=== PATIENT | female | born 2000 | race Caucasian/White ===

== ENCOUNTER → 2019-11-26 08:19 | Outpatient (CLI) | payer SELFPAY ==
--- NOTE | 2019-11-26 | DI.US.S_ITS ---
PROCEDURE: US ABDOMEN COMPLETE INDICATIONS: ABD PAIN TECHNIQUE: Real-time scanning was performed of the abdominal and retroperitoneal organs, with image documentation. COMPARISON: None. FINDINGS: Liver: Liver is normal in size and homogeneous in echotexture. Gallbladder: The gallbladder appears normal Biliary ducts: Intrahepatic bile ducts are non-dilated. Extrahepatic bile duct caliber measures 5.0 mm. Normal is 6-7 mm or less in diameter, or 10 mm or less post-cholecystectomy. Pancreas: Visualized portions of the pancreas are sonographically normal. Spleen: Spleen is normal in size and homogeneous in echotexture. Kidneys: Kidneys are normal in size and echotexture. Right kidney measures 10.3 cm long; left kidney measures 10.7 cm long. No hydronephrosis or nephrolithiasis. No solid masses. Aorta: Visualized aorta is normal in caliber at less than 3 cm. Iliacs: Proximal common iliac arteries are normal in caliber at less than 2.5 cm. IVC: Intrahepatic inferior vena cava is patent. Miscellaneous: No free abdominal fluid. IMPRESSION: Normal examination. Source of pain is not found. Dictated by: Yohan Palafox M.D. on 11/26/2019 at 12:36 Approved by: Yohan Palafox M.D. on 11/26/2019 at 12:38
== END ==
PROVIDERS: Referring Provider Family Medicine; Visit Provider Family Medicine
DX: R10.9 Unspecified abdominal pain (principal)
CPT/HCPCS: 76700

== ENCOUNTER → 2020-11-07 12:22 | Outpatient (CLI) | payer OTHER, SELFPAY ==
--- NOTE | 2020-11-07 12:29 | DI.US.S_ITS ---
PROCEDURE: US PELVIC COMPLETE INDICATIONS: DYSMENORRHEA,MENOMETRORRHAGIA TECHNIQUE: Real-time scanning was performed of the pelvic organs, with image documentation. Additional endovaginal scanning was necessary due to incomplete visualization of the adnexal and endometrial structures by transabdominal scanning. COMPARISON: None. FINDINGS: Uterus: Uterus is normal in size at 4.9 x 3.9 x 4.7 cm. The endometrium measures 13 mm in combined thickness. Ovaries: Right ovary measures 2.5 x 3.1 x 4.1 cm and the left 3.5 x 3.2 x 3.8 cm. Regressing right physiologic cyst measuring 14 mm. Simple cyst associated with the left ovary measuring 2.5 cm. Doppler assessment demonstrates bilateral intrinsic ovarian blood flow. Other: No pathologic free abdominal or pelvic fluid. IMPRESSION: Regressing right and simple left ovarian cyst. Dictated by: Edmund Ly [facility] Interpreted: Yohan Palafox MD on 11/07/2020 at 15:31 Transcribed by: CARTER on 11/07/2020 at 15:33 Approved by: Yohan Palafox M.D. on 11/07/2020 at 17:24
== END ==
PROVIDERS: PCP Family Medicine; Referring Provider Family Medicine; Visit Provider Family Medicine
DX: N94.6 Dysmenorrhea, unspecified (principal); N92.1 Excessive and frequent menstruation with irregular cycle; N83.291 Other ovarian cyst, right side; N83.292 Other ovarian cyst, left side
CPT/HCPCS: 76830; 76856

== ENCOUNTER → 2021-05-04 15:47 | Outpatient (CLI) | payer OTHER, SELFPAY ==
[2021-05-04 17:01] LABS: COVID19 -Nasal RAPID Negative (Negative)
== END ==
PROVIDERS: PCP Family Medicine; Referring Provider Obstetrics & Gynecology; Visit Provider Obstetrics & Gynecology
DX: Z01.812 Encounter for preprocedural laboratory examination (principal); Z20.822 Contact with and (suspected) exposure to COVID-19
CPT/HCPCS: 87635

== ENCOUNTER 2021-05-05 08:17 | Day surgery (SDC) | payer OTHER, SELFPAY ==
[2021-04-30 14:12] VITALS: BMI 26.4
[2021-05-05] VITALS (10 sets, daily range): BP systolic 118–136; BP diastolic 57–91; PULSE 63–94; RESP 10–19; TEMP 36.8–37; O2SAT 95–99; BMI 26.4
[2021-05-05] MEDS: ACETAMINOPHEN 325 MG TABLET 975 MG PO (08:52)
[2021-05-05] MEDS: LACTATED RINGERS 1,000 ML 100 ML IV ×2 (10:00→13:12)
--- NOTE | 2021-05-05 10:33 | SUR.OPER ---
VIABLE BABY GIRL BORN AT 1037. CORD BLOOD X2 AND PLACENTA GIVEN TO OB NURSE.
--- NOTE | 2021-05-05 10:36 | P.HP_ITS ---
History of Present Illness History of Present Illness Date Patient Seen: 05/05/21 Time Patient Seen: 10:37 Chief complaint: DX LAP, EXICISON OF R OVARIAN CYST & IUD INSERTION Narrative: Patient is a 21-year-old 0 with a persistent right ovarian cyst and men ometrorrhagia. She presents for a laparoscopic removal of right ovarian cyst and placement of Kyleena IUD. Patient History Medical History (Updated 04/20/21 @ 20:40 by Yoko Brewer) Depression (~2013) Migraines PTSD (post-traumatic stress disorder) (~2015) Family & Social History Family History (Updated 04/20/21 @ 20:42 by Yoko Brewer) Father Hypertension Grandfather History of heart disease Hypertension Grandfather Diabetes mellitus History of heart disease Hypertension Hyperlipidemia Stroke Grandmother Hypertension Social History: household members family Tobacco & Substance use: Smoking Status Never smoker alcohol intake frequency a few times a month Substance Use Type does not use Meds Home Medications and Allergies Home Medications Medication Instructions Recorded Confirmed Type [place] 1 1 tab PO QDAY #0 06/30/12 05/05/21 History sertraline 100 mg tablet 100 mg PO DAILY 12/02/20 05/05/21 History levonorgestrel 0.15 mg-ethinyl 1 tab PO DAILY #91 ea 02/25/21 05/05/21 Rx estradiol 30 mcg tablets,3 mos pack(91) tramadol 50 mg tablet 50 mg PO Q4H PRN #20 tab 03/09/21 05/05/21 Rx Allergies Allergy/AdvReac Type Severity Reaction Status Date / Time No Known Drug Allergies Allergy Verified 05/05/21 08:45 Exam Vital Signs (past 8 hours): - 05/05/21 08:58 Temperature 98.6 F Pulse Rate 63 Respiratory Rate 14 Blood Pressure 122/75 Pulse Oximetry 98 Oxygen Delivery Method Room Air Narrative Exam Narrative: HEENT: No thyromegaly, no anterior cervical or supraclavicular lymphadenopathy. Lungs:Clear to auscultation bilaterally, no wheezes. Cardiovascular: Regular rate and rhythm, no murmurs, rubs, or gallops. Abdomen: No scars. No hepatosplenomegaly. No masses palpable. External genitalia: Normal Vagina: Normal Cervix: Nulliparous Bimanual exam: [6 Week size uterus. Mobile. No adnexal masses or tenderness Assessment & Plan Assessment & Plan narrative: Assessment: 21-year-old 0 with a persistent right ovarian cyst and menometrorrhagia Plan: Laparoscopic removal of right ovarian cyst and placement of Kyleena IUD. The risks, benefits, and alternatives to the procedure were explained to the patient. The risks including bleeding infection, injury to the bowel, bladder, or ureters. She also understands that there is a possibility of uterine perforation with the Kyleena IUD insertion. Patient understands all of these risks and agrees to proceed. A full par Q was held and consent form was signed. COVID-19 COVID-19 status: Negative Result date/Date tested (Pos, Neg/Pending): 05/04/21 Time Spent With Patient Time with patient: less than 30 minutes Critical Care time: I spent a total of [] minutes of critical care time on this patient's care today; this time is exclusive of procedural time.
--- NOTE | 2021-05-05 10:40 | PM.PREOP ---
Pre-operative Note COVID-19 COVID-19 status: Negative Result date/Date tested (Pos, Neg/Pending): 05/04/21 Interval Note History & Physical reviewed/Exam performed by Physician: Yes Changes to H&P: No H&P completed within 30 days and has changed as indicated here:: 05/05/21
[2021-05-05] MEDS: BUPIVACAINE 0.5% (PF) VIAL 30 ML INJ (12:30)
[2021-05-05] MEDS: EPINEPHrine 1 MG/ML 0.15 MG INJ (12:30)
--- NOTE | 2021-05-05 12:35 | SUR.OPER ---
Lithotomy on padded OR bed, head on pillow, arms secured on padded arm boards at <90 degrees abduction. Legs secured in padded yellow fins stirrups.
--- NOTE | 2021-05-05 13:06 | PM.GYNOP.1 ---
Operative Date/Time/Diagnoses Date of procedure: 05/05/21 Time of procedure: 13:06 Pre-op diagnosis: Right ovarian cyst Menometrorrhagia Post-op diagnosis: same Procedure & Clinicians Procedure: Procedures Operation Date: 05/05/21 09:45 Actual Procedure Side Surgeon gladys VIVEROS Laparoscopy, Excision of RIGHT PARATUBAL CYST, Kyleena IUD insertion Jeane Gil MD Indications: Persistent right ovarian cyst Menometrorrhagia Surgeon: Jeane Gil Client Relationship Executive: Polina Lehman Anesthesia Type: General and Local Operative Notes Findings: 6 week size anteverted uterus Normal ovaries bilaterally Normal liver and gallbladder 1.5cm right paratubal cyst Normal left tube No evidence of endometriosis Closure Type: primary Specimen(s): none Estimated blood loss (mL): 5 Blood products transfused: none Procedure in detail: After informed consent was obtained, the patient was taken to the operating room where she was placed in the dorsal supine position. After adequate general endotracheal anesthesia was achieved, she was placed in the dorsal lithotomy position, and prepped and draped in the usual sterile fashion. A time-out was performed. A bivalve speculum was placed in the vagina and a single-tooth tenaculum placed on the anterior lip of the cervix. The cervical os was sequentially dilated until the Zumi uterine manipulator could pass easily into the endometrial cavity. The single-tooth tenaculum was removed from the anterior lip of the cervix. The bivalve speculum was removed from the vagina. Attention was then turned to the abdomen where 6 cc of 0.5% Marcaine with epinephrine were injected in the umbilical fold. A 5 mm incision was made. The Veress needle was placed into the peritoneal cavity, and its placement confirmed by aspiration drop test. The abdominal cavity was insufflated with 3.6 L of CO2. The Veress needle was removed, and a 5 mm trocar was placed without difficulty. A second incision was made 4 cm left lateral to the midline at the level of the umbilicus after 6 cc of 0.5% Marcaine with epinephrine were injected. A 5 mm trocar was placed under direct visualization. Elevating the uterus out of the pelvis there was a moderate amount of bloody fluid in the pelvis. The fluid was aspirated. The ovarian fossa were examined and there was no evidence of endometriosis. On the right tube there was a small paratubal cyst measuring 1.5 cm. This was grasped with the PlasmaKinetic and cauterized and removed with cut. Care was taken to avoid the fimbria of the tube. The cyst that was on the right ovary had ruptured. The left ovary and tube were normal. The appendix was normal. The gallbladder and liver were normal. Hemostasis was achieved. The instruments were removed from the abdomen. CO2 was allowed to escape. The trocars were removed. incisions were repaired with 4-0 Monocryl in a subcuticular fashion. Hemostasis was achieved. Steri-Strips and Allevyn dressings were placed. The Zumi uterine manipulator was removed from the uterus. The Kyleena IUD was placed without difficulty and the strings were cut to 1.5 cm. Sponge, lap, and instrument counts were correct x2. The patient tolerated the procedure well, was taken to PACU in stable condition. Complications: none Post-operative Condition: stable Disposition: PACU Plan for aftercare: Home after recovery
[2021-05-05] MEDS: LORazepam 2 MG/ML INJ 0.25 MG IV ×3 (13:12→13:34)
[2021-05-05] MEDS: MEPERIDINE 50 MG/ML INJ 12.5 MG IV ×2 (13:20→13:35)
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
[2021-05-05] MEDS: OXYCODONE IR 5 MG TABLET PO (13:45)
--- NOTE | 2021-05-05 15:32 | SUR.PHASEII ---
At discharge, anxiety controlled. Pt able to void. Small amt bloody drng in toilet. Discharge instructions reviewed with pt and Mother.
== END 2021-05-05 15:09 | disposition home or self-care (01) ==
PROVIDERS: PCP Family Medicine; Referring Provider Obstetrics & Gynecology; Visit Provider Obstetrics & Gynecology
PROC: (CPT 58662; principal; 2021-05-05 09:45)
DX: N92.1 Excessive and frequent menstruation with irregular cycle (principal); N83.8 Other noninflammatory disorders of ovary, fallopian tube and broad ligament; Z30.430 Encounter for insertion of intrauterine contraceptive device; F43.10 Post-traumatic stress disorder, unspecified; F32.9 Major depressive disorder, single episode, unspecified; G43.909 Migraine, unspecified, not intractable, without status migrainosus; N83.291 Other ovarian cyst, right side
CPT/HCPCS: 58662; 58300; 81025; J0171; J0330; J1100; J1885; J2060; J2175; J2250; J2405; J2704; J3010; J7296